=== PATIENT | female | born 1985 | race Caucasian/White ===

== ENCOUNTER 2019-08-04 11:47 | Inpatient (IN) | payer OTHER ==
[~2019-08-04] VITALS: Ht 162.6 cm; Wt 85.9 kg
[2019-08-04 12:27] VITALS: BP 124/81
[2019-08-04] MEDS ORDERED: OXYTOCIN 30U/ 0.9% NaCL 500ML 500 ML IV PRN (15:22)
[2019-08-04] MEDS ORDERED: OXYTOCIN 30U/ 0.9% NaCL 500ML 500 ML IV ONE (15:22)
[2019-08-04] MEDS: D5%-LACTATED RINGERS 1,000 ML IV SCH ×2 (15:22→23:14)
[2019-08-04] MEDS ORDERED: FENTANYL PF 100 MCG/2ML IVPush PRN (15:30)
[2019-08-04] MEDS ORDERED: CALCIUM CARBONATE 500 MG TAB.CHEW PO PRN (15:30)
[2019-08-04] MEDS ORDERED: ONDANSETRON 2MG/ML, 2ML IVPush PRN (15:30)
[2019-08-04] MEDS ORDERED: TERBUTALINE 1 MG/ML, 1ML IVPush PRN (15:30)
[2019-08-04] MEDS ORDERED: ALUMINUM/MAG/SIMETHICONE 30 ML UDC PO PRN (15:30)
[2019-08-04] MEDS ORDERED: SODIUM CITRATE/CITRIC ACID 30 ML UDC PO PRN (15:30)
[2019-08-04] MEDS ORDERED: TERBUTALINE 1 MG/ML, 1ML SQ PRN (15:30)
[2019-08-04] MEDS ORDERED: NEWBORN KIT ONE (15:31)
[2019-08-04] MEDS ORDERED: MISOPROSTOL 200 MCG TABLET ONE (15:32)
[2019-08-04] MEDS ORDERED: LIDOCAINE 1%, 20ML ONE (15:32)
[2019-08-04 15:54] LABS: MEAN CORPUSCULAR HEMOGLOBIN 26.5 pg (27.0-34.8); MEAN CORPUSCULAR HGB CONC 32.6 g/dL (32.4-35.8); MEAN CORPUSCULAR VOLUME 81.1 fL (80-100); MEAN PLATELET VOLUME 9.2 fL (7.4-10.4); PLATELET COUNT 208 x10^3/uL (130-400); RED BLOOD COUNT 4.66 x10^6/uL (3.82-5.3); RED CELL DISTRIBUTION WIDTH 24.2 % (9.6-15.2)
[2019-08-04 16:13] LABS: ANISOCYTOSIS 1+; BASOPHILS # (AUTO) 0.05 x10^3/uL (0-0.1); BASOPHILS % (AUTO) 1 % (0-1); EOSINOPHILS # (AUTO) 0.02 x10^3/uL (0-0.4); EOSINOPHILS % (AUTO) 0 % (1-7); LYMPHOCYTES % (AUTO) 18 % (22-44); MD MORPH REVIEW ONLY; MONOCYTES # (AUTO) 0.45 x10^3/uL (0.2-0.8); MONOCYTES % (AUTO) 4 % (2-9); NEUTROPHILS # (AUTO) 8.15 x10^3/uL (1.8-6.8); NEUTROPHILS % (AUTO) 77 % (42-75); POLYCHROMASIA 1+
[2019-08-04 16:14] LABS: OVALOCYTES 1+
[2019-08-04 16:15] LABS: <PLATELET ESTIMATE> ADEQUATE; <PLT MORPHOLOGY> NORMAL PLT MORPH
[2019-08-04] MEDS ORDERED: FENTANYL PF 100 MCG/2ML ONE (16:24)
[2019-08-04] MEDS: LACTATED RINGERS 1,000 ML IV SCH ×2 (16:30→19:44)
[2019-08-04] MEDS ORDERED: FENTANYL/BUPIV./NS/PF 250 ML EPIDCONT SCH (16:30)
[2019-08-04] MEDS ORDERED: LACTATED RINGERS 1,000 ML IVBOLUS PRN (16:30)
[2019-08-04] MEDS ORDERED: EPHEDRINE 50 MG/ML, 1ML IVPush PRN (16:30)
[2019-08-04 16:33] LABS: ALANINE AMINOTRANSFERASE 20 U/L (12-78); ALBUMIN 2.7 g/dL (3.4-5.0); ANION GAP 8 mmol/L (5-15); CALCIUM 8.8 mg/dL (8.5-10.1); CHLORIDE 107 mmol/L (98-107); CREATININE 0.85 mg/dL (0.55-1.02)
[2019-08-04 16:35] LABS: ALKALINE PHOSPHATASE 223 U/L (45-117); BILIRUBIN,TOTAL 0.5 mg/dL (0.2-1.0); TOTAL PROTEIN 7.1 g/dL (6.4-8.2)
[2019-08-04 16:36] LABS: BILIRUBIN, DIRECT < 0.1 mg/dL (0.1-0.2)
[2019-08-04] MEDS ORDERED: BUPIVACAINE 0.25% ONE (16:57)
[2019-08-04] MEDS ORDERED: FENTANYL PF 500 MCG, BUPIVACAINE/PF 0.5%, 30ML 62.5 ML in SODIUM CHLORIDE 0.9% 177.5 ML EPIDCONT SCH (17:00)
[2019-08-04] MEDS ORDERED: LIDOCAINE/PF 1.5%-EPI 1:200K, 30ML ONE (17:02)
[2019-08-04 18:49] LABS: MICROSCOPIC INDICATED
[2019-08-04] MEDS ORDERED: OXYTOCIN 30U/ 0.9% NaCL 500ML 500 ML ONE (19:29)
[2019-08-04] MEDS ORDERED: ONDANSETRON 2MG/ML, 2ML ONE (20:23)
[2019-08-04] MEDS ORDERED: PREN1TAB60 PO (21:03)
[2019-08-04 22:34] VITALS: BP 145/84
[2019-08-05] MEDS: LACTATED RINGERS 1,000 ML IV SCH ×7 (00:30→21:54)
[2019-08-05] MEDS ORDERED: SODIUM CITRATE/CITRIC ACID 30 ML UDC ONE (03:30)
[2019-08-05] MEDS ORDERED: METOCLOPRAMIDE 5 MG/ML, 2ML ONE (03:30)
[2019-08-05] MEDS ORDERED: AZITHROMYCIN 500 MG in SODIUM CHLORIDE 0.9% 250 ML IV STA (03:33)
[2019-08-05] MEDS ORDERED: LIDOCAINE-MPF 2% ,5ML ONE ×4 (03:37→03:38)
[2019-08-05] MEDS ORDERED: CEFAZOLIN 1,000 MG ONE ×2 (03:40)
[2019-08-05] MEDS ORDERED: KETOROLAC 30 MG/1 ML ONE (03:42)
[2019-08-05] MEDS ORDERED: OXYTOCIN 10 UNITS/ML, 1ML ONE ×4 (03:42)
[2019-08-05] MEDS ORDERED: METOCLOPRAMIDE 5 MG/ML, 2ML IV ONE (04:00)
[2019-08-05] MEDS ORDERED: ONDANSETRON 2MG/ML, 2ML ONE (04:32)
[2019-08-05] MEDS ORDERED: ACETAMINOPHEN 325 MG TABLET PO PRN ×2 (05:30→06:00)
[2019-08-05] MEDS ORDERED: morphine SULFATE 10 MG/ML, 1ML IVPush PRN (05:30)
[2019-08-05] MEDS ORDERED: ONDANSETRON 2MG/ML, 2ML IVPush PRN (05:30)
[2019-08-05] MEDS ORDERED: FENTANYL PF 100 MCG/2ML IV PRN (05:30)
[2019-08-05] MEDS ORDERED: EPHEDRINE 50 MG/ML, 1ML IM PRN (05:30)
[2019-08-05] MEDS ORDERED: EPHEDRINE 50 MG/ML, 1ML IVPush PRN (05:30)
[2019-08-05] MEDS ORDERED: OXYcodone 5 MG/5 ML ORAL.SOL UDC PO PRN (05:30)
[2019-08-05] MEDS ORDERED: DIPHENHYDRAMINE 50 MG/ML, 1ML IVPush PRN (05:30)
[2019-08-05] MEDS: OXYTOCIN 30U/ 0.9% NaCL 500ML 500 ML IV SCH ×2 (05:54→15:54)
[2019-08-05] MEDS ORDERED: DEXTROSE 47%, 15GM GEL ONE (05:59)
[2019-08-05] MEDS ORDERED: OXYcodone IR 5MG TABLET PO PRN (06:00)
[2019-08-05] MEDS ORDERED: BISACODYL 10 MG SUPP PR PRN (06:00)
[2019-08-05] MEDS: KETOROLAC 30 MG/1 ML IV SCH ×4 (06:00→23:59)
[2019-08-05] MEDS ORDERED: morphine SULFATE 10 MG/ML, 1ML IV PRN (06:00)
[2019-08-05] MEDS ORDERED: ONDANSETRON 2MG/ML, 2ML IV PRN (06:00)
[2019-08-05] MEDS ORDERED: MORPHINE SULFATE 4 MG/ML, 1ML IVPush PRN (06:00)
[2019-08-05] MEDS ORDERED: MISOPROSTOL 200 MCG TABLET PR PRN (06:00)
[2019-08-05] MEDS ORDERED: CALCIUM CARBONATE 500 MG TAB.CHEW PO PRN (06:00)
[2019-08-05] MEDS ORDERED: AMPICILLIN 1 GM IM SCH (06:30)
[2019-08-05] MEDS ORDERED: CLINDAMYCIN 150 MG/ML, 6ML IV SCH (06:30)
[2019-08-05] MEDS ORDERED: OXYcodone 5 MG/5 ML ORAL.SOL UDC ONE (06:32)
[2019-08-05 08:00] VITALS: BP 107/72
[2019-08-05] MEDS ORDERED: GENTAMICIN 340 MG in SODIUM CHLORIDE 0.9% 100 ML IV SCH (08:00)
[2019-08-05] MEDS: CLINDAMYCIN PMX 900MG/50ML 50 ML IV SCH ×3 (08:26→23:01)
[2019-08-05] MEDS: PRENATAL VIT/IRON/FA 1 EACH TABLET PO SCH (09:00)
[2019-08-05] MEDS: OXYcodone IR 5MG TABLET PO PRN ×3 (10:00→18:42)
[2019-08-05 12:00] VITALS: BP 112/67
[2019-08-05] MEDS ORDERED: AMPICILLIN 1 GM IVPB SCH (12:30)
[2019-08-05] MEDS: AMPICILLIN 1 GM in SODIUM CHLORIDE 0.9% 100 ML IV SCH ×3 (13:45→23:59)
[2019-08-05] MEDS: SIMETHICONE 80 MG CHEW TAB PO PRN ×2 (14:34→23:59)
[2019-08-05 16:43] VITALS: BP 107/72
[2019-08-05 21:40] VITALS: BP 117/70
[2019-08-05 21:51] LABS: MEAN CORPUSCULAR HEMOGLOBIN 27.1 pg (27.0-34.8); MEAN CORPUSCULAR HGB CONC 33.2 g/dL (32.4-35.8); MEAN CORPUSCULAR VOLUME 81.7 fL (80-100); MEAN PLATELET VOLUME 9.2 fL (7.4-10.4); PLATELET COUNT 160 x10^3/uL (130-400); RED BLOOD COUNT 3.65 x10^6/uL (3.82-5.3); RED CELL DISTRIBUTION WIDTH 23.6 % (9.6-15.2)
[2019-08-05 22:06] LABS: BASOPHILS # (AUTO) 0.02 x10^3/uL (0-0.1); BASOPHILS % (AUTO) 0 % (0-1); EOSINOPHILS # (AUTO) 0.03 x10^3/uL (0-0.4); EOSINOPHILS % (AUTO) 0 % (1-7); LYMPHOCYTES # (AUTO) 1.66 x10^3/uL (1-3.4); LYMPHOCYTES % (AUTO) 9 % (22-44); MD SCAN; MONOCYTES % (AUTO) 5 % (2-9); NEUTROPHILS # (AUTO) 15.69 x10^3/uL (1.8-6.8); NEUTROPHILS % (AUTO) 86 % (42-75)
[2019-08-05] MEDS: DOCUSATE 100 MG CAPSULE PO PRN (23:59)
[2019-08-06 00:15] VITALS: BP 100/68
[2019-08-06] MEDS: LACTATED RINGERS 1,000 ML IV SCH ×6 (01:54→21:54)
[2019-08-06] MEDS: OXYTOCIN 30U/ 0.9% NaCL 500ML 500 ML IV SCH ×3 (01:54→21:54)
[2019-08-06 04:45] VITALS: BP 106/69
[2019-08-06] MEDS: AMPICILLIN 1 GM in SODIUM CHLORIDE 0.9% 100 ML IV SCH (06:08)
[2019-08-06] MEDS: IBUPROFEN 600 MG TABLET PO PRN ×3 (06:12→20:46)
[2019-08-06] MEDS: SIMETHICONE 80 MG CHEW TAB PO PRN ×2 (06:12→20:46)
[2019-08-06] MEDS: CLINDAMYCIN PMX 900MG/50ML 50 ML IV SCH (06:57)
[2019-08-06 07:10] VITALS: BP 106/72
[2019-08-06] MEDS: DOCUSATE 100 MG CAPSULE PO PRN ×2 (08:18→20:46)
[2019-08-06] MEDS: ACETAMINOPHEN 500 MG TABLET PO SCH ×3 (08:18→20:46)
[2019-08-06] MEDS ORDERED: ACETAMINOPHEN 325 MG TABLET PO SCH (08:30)
[2019-08-06] MEDS: PRENATAL VIT/IRON/FA 1 EACH TABLET PO SCH (09:00)
[2019-08-06] MEDS: FERROUS GLUCONATE 324 MG TABLET PO SCH ×2 (11:06→17:17)
[2019-08-06 20:00] VITALS: BP 112/74
[2019-08-07] MEDS: IBUPROFEN 600 MG TABLET PO PRN ×2 (02:18→08:32)
[2019-08-07] MEDS: ACETAMINOPHEN 500 MG TABLET PO SCH ×2 (02:18→08:31)
[2019-08-07] MEDS: LACTATED RINGERS 1,000 ML IV SCH (05:54)
[2019-08-07] MEDS ORDERED: DOCU-131 PO (07:46)
[2019-08-07] MEDS ORDERED: FE F1CAP8 PO (07:48)
[2019-08-07] MEDS ORDERED: IBUP-1222 PO (07:50)
[2019-08-07] MEDS ORDERED: OXYC-302 PO (07:50)
[2019-08-07] MEDS ORDERED: FERR240T PO (07:53)
[2019-08-07 08:00] VITALS: BP 130/84
[2019-08-07] MEDS: FERROUS GLUCONATE 324 MG TABLET PO SCH (08:31)
[2019-08-07] MEDS: DOCUSATE 100 MG CAPSULE PO PRN (08:31)
[2019-08-07] MEDS: SIMETHICONE 80 MG CHEW TAB PO PRN (08:31)
[2019-08-07] MEDS: PRENATAL VIT/IRON/FA 1 EACH TABLET PO SCH (08:37)
== END 2019-08-07 11:30 | disposition home or self-care (01) | DRG 786 ==
LOC: LDOP 11:47 → LDIP 15:24 → 2NW 08-05 07:34
PROVIDERS: ADMIT Student in an Organized Health Care Education/Training Program; ATTEND Student in an Organized Health Care Education/Training Program
PROC: 10D00Z1 Extraction of Products of Conception, Low, Open Approach (ICD-10-PCS; principal; 2019-08-05)
PROC: 10907ZC Drainage of Amniotic Fluid, Therapeutic from Products of Conception, Via Natural or Artificial Opening (ICD-10-PCS; 2019-08-05)
PROC: 10H07YZ Insertion of Other Device into Products of Conception, Via Natural or Artificial Opening (ICD-10-PCS; 2019-08-05)
DX: O34.211 Maternal care for low transverse scar from previous cesarean delivery (principal); O71.1 Rupture of uterus during labor; O62.1 Secondary uterine inertia; O13.4 Gestational [pregnancy-induced] hypertension without significant proteinuria, complicating childbirth; O99.62 Diseases of the digestive system complicating childbirth; K66.0 Peritoneal adhesions (postprocedural) (postinfection); Z37.0 Single live birth; Z88.2 Allergy status to sulfonamides; Z3A.40 40 weeks gestation of pregnancy
CPT/HCPCS: 36415; J3490; J7121; S0020; 80053; 81001; 82248; 82570; 82803; 84156; 84550; 85025; 86592; 86850; 86900; G0378; J0290; J0456; J0690; J1885; J2405; J3010; J1580; J2590; J2765; J7050; J7120